=== PATIENT | female | born 1990 | race Two or more races ===

== ENCOUNTER 2018-01-08 22:56 | Emergency (ER) | payer OTHER ==
[~2018-01-08] VITALS: Ht 170.2 cm; Wt 67.6 kg
[~2018-01-08 22:56] MED LIST: ERYTHROMYCIN500 MG PO; PREDNISONE5 MG/DOSE- PO
[2018-01-09] MEDS ORDERED: KETO10TA2 PO (02:54)
[2018-01-09] MEDS ORDERED: ANUSOL-HC25 MG RECTAL (02:54)
[2018-01-09] MEDS ORDERED: MIRALAX17 GM PO (07:46)
[2018-01-09] MEDS ORDERED: KRISTALOSE20 GM PO (07:46)
== END 2018-01-09 07:51 | disposition home or self-care (01) ==
LOC: ER 22:56
DX: K64.4 Residual hemorrhoidal skin tags (principal)

== ENCOUNTER 2020-10-19 18:17 | Emergency (ER) | payer OTHER ==
[~2020-10-19] VITALS: Ht 170.2 cm; Wt 64.9 kg
[~2020-10-19 18:17] MED LIST changes: +ANUSOL-HC25 MG RECTAL; +KETO10TA2 PO; +KRISTALOSE20 GM PO; +MIRALAX17 GM PO
[2020-10-20] MEDS ORDERED: CYCLOBENZAPRINE10 MG PO (00:08)
[2020-10-20] MEDS ORDERED: NORFLEX100MG PO (00:08)
== END 2020-10-20 01:21 | disposition home or self-care (01) ==
LOC: ER 18:17
DX: R07.89 Other chest pain (principal); Z20.822 Contact with and (suspected) exposure to COVID-19

== ENCOUNTER 2021-03-08 08:13 | Emergency (ER) | payer OTHER ==
[~2021-03-08] VITALS: Ht 170.2 cm; Wt 62.1 kg
[~2021-03-08 08:13] MED LIST changes: +CYCLOBENZAPRINE10 MG PO; +NORFLEX100MG PO
[2021-03-08] MEDS ORDERED: DOLOGEN 325-11 EACH PO (11:26)
[2021-03-08] MEDS ORDERED: MEDROLPACK PO (11:26)
[2021-03-08] MEDS ORDERED: TUSNEL LIQUID178 ML PO (11:26)
== END 2021-03-08 12:19 | disposition home or self-care (01) ==
LOC: ER 08:13
DX: U07.1 COVID-19 (principal); J06.9 Acute upper respiratory infection, unspecified

== ENCOUNTER 2021-07-07 10:57 | Emergency (ER) | payer OTHER ==
[~2021-07-07] VITALS: Ht 170.2 cm; Wt 63.5 kg
[~2021-07-07 10:57] MED LIST changes: +DOLOGEN 325-11 EACH PO; +MEDROLPACK PO; +TUSNEL LIQUID178 ML PO
== END 2021-07-07 14:27 | disposition home or self-care (01) ==
LOC: ER 10:57
DX: J10.1 Influenza due to other identified influenza virus with other respiratory manifestations (principal); J32.9 Chronic sinusitis, unspecified; Z20.822 Contact with and (suspected) exposure to COVID-19

== ENCOUNTER 2024-02-03 09:09 | Emergency (ER) | payer OTHER ==
[~2024-02-03] VITALS: Ht 172.7 cm; Wt 68.9 kg
[2024-02-03 09:23] VITALS: BP 122/77; O2SAT 100
[2024-02-03] MEDS ORDERED: BACLOFEN 10 MG TABLET PO ONE (10:00)
[2024-02-03] MEDS ORDERED: KETOROLAC TROMETHAMINE 60 MG VIAL IM ONE (10:00)
[2024-02-03] MEDS ORDERED: TRAM1TAB98 PO (12:24)
[2024-02-03] MEDS ORDERED: NORFLEX100MG PO (12:24)
== END 2024-02-03 13:40 | disposition home or self-care (01) ==
LOC: ER 09:11
DX: S10.93XA Contusion of unspecified part of neck, initial encounter (principal); W18.2XXA Fall in (into) shower or empty bathtub, initial encounter; Y93.89 Activity, other specified; Y92.012 Bathroom of single-family (private) house as the place of occurrence of the external cause; Y99.9 Unspecified external cause status; Z91.018 Allergy to other foods